=== PATIENT | female | born 2000 | race African-American/Black ===

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

== ENCOUNTER 2019-01-25 16:07 | Emergency (ER) | payer MEDICAID ==
[~2019-01-25] VITALS: Ht 182.9 cm; Wt 84.4 kg
--- NOTE | 2019-01-25 16:29 | NUR ---
"PROLONGED MENSTRUAL PERIODS, WEAKNESS S/P DEPO SHOT LAST 12/09/18" PT AAOX4, -SOB, NAD NOTED, VSS, PENDING MD MALONE
[2019-01-25 17:27] LABS: BASOPHILS % (AUTO) 0.7 % (0.0-2.0); EOSINOPHILS % (AUTO) 1.2 % (0.0-6.0); HEMATOCRIT 38 % (33-45); HEMOGLOBIN 12.3 g/dL (11.5-14.8); LYMPHOCYTES # (AUTO) 2.4 /CMM (0.8-4.8); MEAN CORPUSCULAR HGB CONC 33 g/dl (31.0-36.0); MEAN CORPUSCULAR VOLUME 80 fL (82-100); MONOCYTES # (AUTO) 0.4 /CMM (0.1-1.30); MONOCYTES % (AUTO) 9.1 % (2.0-12.0); NEUTROPHILS # (AUTO) 1.7 /CMM (1.8-8.9); PLATELET COUNT (AUTO) 228 /CMM (150-450); RED BLOOD CELL COUNT(AUTO) 4.67 MIL/uL (4.0-5.2); WHITE BLOOD COUNT (AUTO) 4.6 K/uL (4.3-11.0)
[2019-01-25 17:37] LABS: CALCIUM, SERUM 9.2 mg/dL (8.5-10.1); CREATININE 0.8 mg/dL (0.6-1.3); POTASSIUM 3.8 mmol/L (3.5-5.1)
[2019-01-25 18:11] LABS: APPEARANCE,URINE Clear (CLEAR); BILIRUBIN,URINE Negative (NEGATIVE); BLOOD, URINE Negative Ery/uL (NEGATIVE); COLOR,URINE Yellow (YELLOW); KETONES,URINE Trace (NEGATIVE); LEUKOCYTE ESTERASE ,URINE Negative (NEGATIVE); NITRITE, URINE Negative (NEGATIVE); PH,URINE 7.5 (5.0-8.0); PROTEIN,URINE Negative (NEGATIVE); UGLUCOSE Negative (NEGATIVE)
[2019-01-25 18:25] LABS: BACTERIA,URINE Few /HPF (None Seen); RBC,URINE 0-2 /HPF (0-2); SQUAMOUS EPITHELIAL CELL,UR Moderate /HPF (None Seen); WBC,URINE 0-2 /HPF (0-3)
--- NOTE | 2019-01-25 19:29 | NUR ---
Patient discharged to home in stable condition. Written and verbal after care instructions given. Patient verbalizes understanding of instruction.
[2019-01-25 19:33] VITALS: BP 123/60
== END 2019-01-25 19:33 | disposition home or self-care (01) ==
LOC: ER 16:10
DX: N93.8 Other specified abnormal uterine and vaginal bleeding (principal); R42 Dizziness and giddiness
CPT/HCPCS: 36415; 76856-TC; 80048-TC; 81000-TC; 84702-TC; 85025-TC

== ENCOUNTER 2019-05-14 19:35 | Emergency (ER) | payer SELFPAY ==
[~2019-05-14] VITALS: Ht 182.9 cm; Wt 86.2 kg
--- NOTE | 2019-05-14 20:20 | NUR ---
CALLED PT TO BE TRIAGED, NOT IN WAITING ROOM
--- NOTE | 2019-05-14 21:25 | NUR ---
RESIDENCE LEASING AGENT IS AT THE BEDSIDE.
--- NOTE | 2019-05-14 21:25 | NUR ---
PT PRESENTED TO THE ER WITH A C/O VB. PT STATED THAT SHE JUST GOT OFF HER DEPO SHOT AND HAS GONE THROUGH 7 [employer] TODAY. PT IS AA&O X4. PT AMBULATED TO THE BATHROOM AND A URINE SAMPLE WAS OBTAINED. PT RETURNED TO ER #2.
[2019-05-14] MEDS ORDERED: ONDANSETRON HCL/PF 4 MG/2 ML VIAL IVP ONE (21:30)
[2019-05-14] MEDS ORDERED: IV NS 0.9% 1,000 ML BAG IV ONE (21:30)
[2019-05-14] MEDS ORDERED: KETOROLAC TROMETHAMINE INJ 30 MG/ML VIAL IV ONE (21:30)
[2019-05-14 21:32] LABS: BASOPHILS % (AUTO) 0.4 % (0.0-2.0); EOSINOPHILS % (AUTO) 1.1 % (0.0-6.0); HEMATOCRIT 38 % (33-45); HEMOGLOBIN 12.3 g/dL (11.5-14.8); LYMPHOCYTES % (AUTO) 54.7 % (20.0-44.0); MEAN CORPUSCULAR HGB CONC 32 g/dl (31.0-36.0); MEAN CORPUSCULAR VOLUME 81 fL (82-100); MONOCYTES # (AUTO) 0.4 /CMM (0.1-1.30); MONOCYTES % (AUTO) 7.6 % (2.0-12.0); NEUTROPHILS % (AUTO) 36.2 % (43.0-81.0); PLATELET COUNT (AUTO) 236 /CMM (150-450); RED BLOOD CELL COUNT(AUTO) 4.72 MIL/uL (4.0-5.2); WHITE BLOOD COUNT (AUTO) 5.4 K/uL (4.3-11.0)
[2019-05-14] MEDS ORDERED: KETOROLAC TROMETHAMINE INJ 30 MG/ML VIAL ONE (21:33)
[2019-05-14] MEDS ORDERED: ONDANSETRON HCL/PF 4 MG/2 ML VIAL ONE (21:33)
[2019-05-14 21:50] LABS: APPEARANCE,URINE Clear (CLEAR); BILIRUBIN,URINE SMALL (NEGATIVE); BLOOD, URINE Negative Ery/uL (NEGATIVE); COLOR,URINE Yellow (YELLOW); KETONES,URINE Negative (NEGATIVE); LEUKOCYTE ESTERASE ,URINE Negative (NEGATIVE); NITRITE, URINE Negative (NEGATIVE); PH,URINE 6.5 (5.0-8.0); PROTEIN,URINE Negative (NEGATIVE); UGLUCOSE Negative (NEGATIVE)
[2019-05-14 21:53] LABS: ALBUMIN 3.9 g/dL (3.4-5.0); BILIRUBIN,TOTAL 0.2 mg/dL (0.2-1.0); CALCIUM, SERUM 9.4 mg/dL (8.5-10.1); CREATININE 0.8 mg/dL (0.6-1.3); POTASSIUM 3.7 mmol/L (3.5-5.1); TOTAL PROTEIN, SERUM 8.2 g/dL (6.4-8.2)
[2019-05-14 21:56] LABS: BACTERIA,URINE Rare /HPF (None Seen); RBC,URINE NONE SEEN /HPF (0-2); SQUAMOUS EPITHELIAL CELL,UR Few /HPF (None Seen); WBC,URINE NONE SEEN /HPF (0-3)
--- NOTE | 2019-05-14 22:03 | NUR ---
PT IS IN THE BATHROOM. US TECH IS AT THE BEDSIDE.
--- NOTE | 2019-05-14 22:09 | NUR ---
US ERIC DHILLON AT THE BEDSIDE. Female television schedule coordinator accompanied female patient for US ERIC DHILLON.
--- NOTE | 2019-05-14 23:05 | NUR ---
Jonathan CHAVEZ PA-C IS AT THE BEDSIDE SPEAKING TO THE PT.
--- NOTE | 2019-05-14 23:33 | NUR ---
IV removed. Catheter intact and site benign. Pressure and 4x4 applied to site. No bleeding noted. Patient discharged to home in stable condition. Written and verbal after care instructions given. Patient verbalizes understanding of instruction AND RX. PT REC'D A COPY OF THE IMAGING DISK, IMAGING FINDINGS, AND LABS. PT AMBULATED OUT WITH A STEADY GAIT. PT'S BOYFRIEND IS PICKING THE PT UP. VSS. NAD NOTED.
[2019-05-14 23:45] VITALS: BP 122/76
== END 2019-05-14 23:46 | disposition home or self-care (01) ==
LOC: ER 19:43
DX: N93.8 Other specified abnormal uterine and vaginal bleeding (principal)
CPT/HCPCS: 36415; 76856; 80048; 80076; 81001; 84703; 85025; 85730; 96374; 96375; 99284; J1885; J2405; J7030; 81000-TC

== ENCOUNTER 2019-05-24 00:08 | Emergency (ER) | payer MEDICAID ==
[2019-05-24] MEDS ORDERED: KETOROLAC TROMETHAMINE INJ 60 MG/2 ML VIAL IM ONE ×2 (00:35→01:00)
[2019-05-24] MEDS ORDERED: IBUPROFEN 400 MG TABLET ONE (00:41)
[2019-05-24 00:46] LABS: HEMOGLOBIN 11.4 g/dL (11.5-14.8)
[2019-05-24 00:49] LABS: BASOPHILS % (AUTO) 0.7 % (0.0-2.0); EOSINOPHILS % (AUTO) 1.2 % (0.0-6.0); HEMATOCRIT 36 % (33-45); LYMPHOCYTES # (AUTO) 3.2 /CMM (0.8-4.8); LYMPHOCYTES % (AUTO) 48.5 % (20.0-44.0); MEAN CORPUSCULAR HGB CONC 32 g/dl (31.0-36.0); MEAN CORPUSCULAR VOLUME 81 fL (82-100); MONOCYTES # (AUTO) 0.5 /CMM (0.1-1.30); MONOCYTES % (AUTO) 6.9 % (2.0-12.0); NEUTROPHILS # (AUTO) 2.9 /CMM (1.8-8.9); NEUTROPHILS % (AUTO) 42.7 % (43.0-81.0); PLATELET COUNT (AUTO) 233 /CMM (150-450); RED BLOOD CELL COUNT(AUTO) 4.41 MIL/uL (4.0-5.2); WHITE BLOOD COUNT (AUTO) 6.7 K/uL (4.3-11.0)
--- NOTE | 2019-05-24 00:52 | NUR ---
EPI FROM HOME TO ER BED 16. AAOX4. NO RESP DISTRESS NOTED. AMBULATORY. C/O SEVERE VAGINAL BLEEDING AND ABDOMINAL CRAMPING. PT REPORTS THAT SHE HAS BEEN HAVING THE BLEEDING SINCE 04/07/19. SHE ALSO REPORTS HAVING BLOOD CLOTS DISCHARGE. PT HAVENT SEEN AN OBGYN SINCE IT STARTED. DENIES NAUSEA OR VOMMITING. MD WAS AT BEDSIDE FOR EVAL. ORDERS RECEIVED, NOTED AND CARRIED OUT. BLOOD DRAWN AND GIVEN TO BENEFITS ADMINISTRATOR AT BEDSIDE. TORADOL ORDER RECEIVED BUT REFUSED BY PT. MADE AWARE AND CHANGED MEDS TO IBUPROHEN 800MG PO X 1.
[2019-05-24] MEDS ORDERED: IBUPROFEN 400 MG TABLET PO ONE (01:00)
[2019-05-24 01:09] VITALS: BP 113/66
--- NOTE | 2019-05-24 01:09 | NUR ---
Patient discharged to home in stable condition. Written and verbal after care instructions given. Patient verbalizes understanding of instruction. Pt ambulatory with a steady gait
== END 2019-05-24 01:09 | disposition home or self-care (01) ==
LOC: ER 00:10
DX: N93.8 Other specified abnormal uterine and vaginal bleeding (principal)
CPT/HCPCS: 36415; 85025-TC; J1885

== ENCOUNTER 2019-06-01 09:32 | Emergency (ER) | payer MEDICAID ==
[~2019-06-01] VITALS: Ht 182.9 cm; Wt 86.2 kg
--- NOTE | 2019-06-01 09:40 | NUR ---
BIB SELF C/O VAGINAL BLEED AND ABDOMINAL CRAMPING STARTED THIS MORNING. PATIENT A/OX4, NO DISTRESS NOTED. KEPT COMFORTABLE.
[2019-06-01] MEDS ORDERED: KETOROLAC TROMETHAMINE INJ 30 MG/ML VIAL IM ONE (10:00)
[2019-06-01 10:13] LABS: APPEARANCE,URINE Clear (CLEAR); BILIRUBIN,URINE Negative (NEGATIVE); BLOOD, URINE Moderate Ery/uL (NEGATIVE); COLOR,URINE Yellow (YELLOW); KETONES,URINE Negative (NEGATIVE); LEUKOCYTE ESTERASE ,URINE Trace (NEGATIVE); NITRITE, URINE Negative (NEGATIVE); PROTEIN,URINE Negative (NEGATIVE); UGLUCOSE Negative (NEGATIVE)
[2019-06-01 10:22] LABS: BASOPHILS % (AUTO) 0.3 % (0.0-2.0); EOSINOPHILS % (AUTO) 1.2 % (0.0-6.0); HEMATOCRIT 32 % (33-45); HEMOGLOBIN 10.5 g/dL (11.5-14.8); LYMPHOCYTES # (AUTO) 1.5 /CMM (0.8-4.8); LYMPHOCYTES % (AUTO) 35.7 % (20.0-44.0); MEAN CORPUSCULAR HGB CONC 32 g/dl (31.0-36.0); MEAN CORPUSCULAR VOLUME 81 fL (82-100); MONOCYTES # (AUTO) 0.3 /CMM (0.1-1.30); MONOCYTES % (AUTO) 6.6 % (2.0-12.0); NEUTROPHILS # (AUTO) 2.3 /CMM (1.8-8.9); NEUTROPHILS % (AUTO) 56.2 % (43.0-81.0); PLATELET COUNT (AUTO) 211 /CMM (150-450); RED BLOOD CELL COUNT(AUTO) 3.99 MIL/uL (4.0-5.2); WHITE BLOOD COUNT (AUTO) 4.1 K/uL (4.3-11.0)
[2019-06-01 10:31] LABS: CALCIUM, SERUM 9.2 mg/dL (8.5-10.1); CREATININE 0.9 mg/dL (0.6-1.3); POTASSIUM 3.8 mmol/L (3.5-5.1)
[2019-06-01 10:37] LABS: ALBUMIN 3.6 g/dL (3.4-5.0); BILIRUBIN,DIRECT 0.1 mg/dL (0.0-0.2); BILIRUBIN,TOTAL 0.3 mg/dL (0.2-1.0); TOTAL PROTEIN, SERUM 7.7 g/dL (6.4-8.2)
[2019-06-01] MEDS ORDERED: KETOROLAC TROMETHAMINE INJ 30 MG/ML VIAL ONE (10:40)
[2019-06-01 10:47] LABS: BACTERIA,URINE 1+ /HPF (None Seen); SQUAMOUS EPITHELIAL CELL,UR Moderate /HPF (None Seen)
[2019-06-01 11:12] VITALS: BP 128/89
--- NOTE | 2019-06-01 11:18 | NUR ---
Patient discharged to home in stable condition. Written and verbal after care instructions given. Patient verbalizes understanding of instruction.
== END 2019-06-01 11:18 | disposition home or self-care (01) ==
LOC: ER 09:34
DX: N93.8 Other specified abnormal uterine and vaginal bleeding (principal)
CPT/HCPCS: 36415; 80048; 80076; 81001; 83690; 84702; 84703; 85025; 96372; 99283; J1885; 81000-TC

== ENCOUNTER 2019-06-26 19:55 | Emergency (ER) | payer MEDICAID ==
[~2019-06-26] VITALS: Ht 182.9 cm; Wt 87.5 kg
--- NOTE | 2019-06-26 21:20 | NUR ---
PT AAOX4. AMBULATORY. C/O WORSENING VAGINAL BLEEDING, ABDOMINAL PAIN WITH CRAMPING. MD AT BEDSIDE FOR EVAL. VSS. N0 ACUTE DISTRESS NOTED.
[2019-06-26] MEDS ORDERED: IBUPROFEN 600 MG TABLET PO ONE ×2 (21:26→21:30)
[2019-06-26] MEDS ORDERED: IV NS 0.9% 1,000 ML BAG IV ONE (21:30)
[2019-06-26 21:41] LABS: BASOPHILS % (AUTO) 0.6 % (0.0-2.0); EOSINOPHILS % (AUTO) 3.9 % (0.0-6.0); HEMATOCRIT 34 % (33-45); LYMPHOCYTES # (AUTO) 2.3 /CMM (0.8-4.8); LYMPHOCYTES % (AUTO) 58.9 % (20.0-44.0); MEAN CORPUSCULAR HGB CONC 32 g/dl (31.0-36.0); MEAN CORPUSCULAR VOLUME 82 fL (82-100); MONOCYTES # (AUTO) 0.4 /CMM (0.1-1.30); MONOCYTES % (AUTO) 10.8 % (2.0-12.0); NEUTROPHILS % (AUTO) 25.8 % (43.0-81.0); PLATELET COUNT (AUTO) 224 /CMM (150-450); RED BLOOD CELL COUNT(AUTO) 4.18 MIL/uL (4.0-5.2); WHITE BLOOD COUNT (AUTO) 3.8 K/uL (4.3-11.0)
--- NOTE | 2019-06-26 21:41 | NUR ---
PHLEBOTOMST AT [facility] FOR LAB COLLECTION
--- NOTE | 2019-06-26 21:41 | NUR ---
URINE SENT TO LAB
[2019-06-26 21:46] LABS: APPEARANCE,URINE Clear (CLEAR); BILIRUBIN,URINE SMALL (NEGATIVE); BLOOD, URINE Moderate Ery/uL (NEGATIVE); COLOR,URINE Yellow (YELLOW); KETONES,URINE Trace (NEGATIVE); LEUKOCYTE ESTERASE ,URINE Negative (NEGATIVE); NITRITE, URINE Negative (NEGATIVE); PROTEIN,URINE Negative (NEGATIVE); UGLUCOSE Negative (NEGATIVE)
[2019-06-26 21:48] LABS: CALCIUM, SERUM 9.3 mg/dL (8.5-10.1); CREATININE 0.8 mg/dL (0.6-1.3); POTASSIUM 3.7 mmol/L (3.5-5.1)
[2019-06-26 21:54] LABS: ALBUMIN 3.6 g/dL (3.4-5.0); BILIRUBIN,TOTAL 0.1 mg/dL (0.2-1.0); TOTAL PROTEIN, SERUM 8.1 g/dL (6.4-8.2)
[2019-06-26 21:58] LABS: BACTERIA,URINE Few /HPF (None Seen); SQUAMOUS EPITHELIAL CELL,UR Few /HPF (None Seen); WBC,URINE 0-2 /HPF (0-3)
--- NOTE | 2019-06-26 22:30 | NUR ---
IV removed. Catheter intact and site benign. Pressure and 4x4 applied to site. No bleeding noted.
[2019-06-26 22:33] VITALS: BP 114/72
--- NOTE | 2019-06-26 22:33 | NUR ---
Patient discharged to home in stable condition. Written and verbal after care instructions given. Patient verbalizes understanding of instruction and RX. vss. pt ambulatory with a steady gait.
== END 2019-06-26 22:38 | disposition home or self-care (01) ==
LOC: ER 19:57
DX: N93.8 Other specified abnormal uterine and vaginal bleeding (principal); J06.9 Acute upper respiratory infection, unspecified
CPT/HCPCS: 36415; 80048; 80076; 81001; 84703; 85025; 85730; 99283; J7030; 81000-TC

== ENCOUNTER 2019-07-28 12:57 | Emergency (ER) | payer MEDICAID ==
[~2019-07-28] VITALS: Ht 180.3 cm; Wt 87.1 kg
[2019-07-28 13:08] VITALS: BP 124/64
== END 2019-07-28 13:58 | disposition home or self-care (01) ==
LOC: ER 12:59
DX: Z00.00 Encounter for general adult medical examination without abnormal findings (principal)

== ENCOUNTER 2020-04-28 19:09 | Emergency (ER) | payer MEDICAID ==
[~2020-04-28] VITALS: Ht 182.9 cm; Wt 87.1 kg
[2020-04-28] MEDS ORDERED: ACETAMINOPHEN ES 500 MG TABLET ONE (19:33)
[2020-04-28] MEDS: ACETAMINOPHEN 325 MG TABLET PO ONE (19:35)
[2020-04-28 19:53] VITALS: BP 122/74
== END 2020-04-28 19:53 | disposition home or self-care (01) ==
LOC: ER 19:12
DX: R22.0 Localized swelling, mass and lump, head (principal); R51.9 Headache, unspecified

== ENCOUNTER 2020-04-30 09:36 | Emergency (ER) | payer MEDICAID ==
[~2020-04-30] VITALS: Ht 182.9 cm; Wt 98.0 kg
--- NOTE | 2020-04-30 09:43 | NUR ---
came in for worsening facial swelling. seen 2 days ago. advised to come back for worsening symptoms, to ER bed 9, hooked to monitor, changed to hosp gown, warm blanket provided, Dr Lewis at bedside
[2020-04-30] MEDS ORDERED: MORPHINE SULFATE INJ 4 MG/ML DISP.SYRIN ONE (10:21)
[2020-04-30] MEDS ORDERED: ONDANSETRON HCL/PF 4 MG/2 ML VIAL ONE ×2 (10:21→13:00)
[2020-04-30 10:30] LABS: BASOPHILS % (AUTO) 0.2 % (0.0-2.0); EOSINOPHILS % (AUTO) 0.6 % (0.0-6.0); HEMATOCRIT 34 % (33-45); HEMOGLOBIN 10.5 g/dL (11.5-14.8); LYMPHOCYTES # (AUTO) 1.8 /CMM (0.8-4.8); LYMPHOCYTES % (AUTO) 33.3 % (20.0-44.0); MEAN CORPUSCULAR HGB CONC 31 g/dl (31.0-36.0); MEAN CORPUSCULAR VOLUME 76 fL (82-100); MONOCYTES # (AUTO) 0.6 /CMM (0.1-1.30); MONOCYTES % (AUTO) 11.1 % (2.0-12.0); NEUTROPHILS % (AUTO) 54.8 % (43.0-81.0); PLATELET COUNT (AUTO) 212 /CMM (150-450); RED BLOOD CELL COUNT(AUTO) 4.45 MIL/uL (4.0-5.2); WHITE BLOOD COUNT (AUTO) 5.5 K/uL (4.3-11.0)
[2020-04-30] MEDS ORDERED: KETOROLAC TROMETHAMINE INJ 30 MG/ML VIAL IV ONE (10:30)
[2020-04-30] MEDS ORDERED: IV NS 0.9% 1,000 ML IV ONE (10:30)
[2020-04-30] MEDS ORDERED: ONDANSETRON HCL/PF 4 MG/2 ML VIAL IV ONE ×2 (10:30→13:00)
[2020-04-30] MEDS ORDERED: MORPHINE SULFATE INJ 4 MG/ML DISP.SYRIN IV ONE (10:30)
--- NOTE | 2020-04-30 10:36 | NUR ---
URINE SAMPLE SENT TO LAB
[2020-04-30 10:39] LABS: CALCIUM, SERUM 8.7 mg/dL (8.5-10.1); CREATININE 0.8 mg/dL (0.6-1.3); POTASSIUM 3.7 mmol/L (3.5-5.1)
[2020-04-30] MEDS ORDERED: KETOROLAC TROMETHAMINE 15 MG/ML VIAL ONE (11:23)
[2020-04-30] MEDS ORDERED: CT SWABBABLE VALVE TRANS SET 1 EA INFUS.SET MC ONE (11:26)
[2020-04-30] MEDS ORDERED: IV NS 0.9% 250 ML IV ONE (11:26)
[2020-04-30] MEDS ORDERED: IOHEXOL-300 100 ML VIAL IV ONE (11:26)
--- NOTE | 2020-04-30 11:26 | NUR ---
picked up by elvira baez via [email or web address] for CT scan
--- NOTE | 2020-04-30 13:45 | NUR ---
IV removed. Catheter intact and site benign. Pressure and 4x4 applied to site. No bleeding noted.Patient discharged to home in stable condition. Written and verbal after care instructions given. Patient verbalizes understanding of instruction.
[2020-04-30 13:46] VITALS: BP 102/61
== END 2020-04-30 13:46 | disposition home or self-care (01) ==
LOC: ER 09:39
DX: K04.7 Periapical abscess without sinus (principal); R51.9 Headache, unspecified
CPT/HCPCS: 36415; 70487; 80048; 84703; 85025; 96361; 96374; 96375; 96376; 99285; J1885; J2270; J2405 ×2; J7030; J7050; Q9967

== ENCOUNTER 2020-10-25 16:34 | Emergency (ER) | payer MEDICAID ==
[~2020-10-25] VITALS: Ht 182.9 cm; Wt 89.8 kg
[2020-10-25 16:44] VITALS: BP 120/91
[2020-10-25] MEDS ORDERED: HYDR-3972 PO (16:56)
[2020-10-25] MEDS ORDERED: AMOX-430 PO (16:56)
[2020-10-25] MEDS ORDERED: IBUP-1957 PO (16:56)
[2020-10-25] MEDS ORDERED: HYDROCODONE/APAP 5/325MG TABLET ONE (16:59)
[2020-10-25] MEDS: HYDROCODONE/APAP 5/325MG TABLET PO ONE (17:02)
--- NOTE | 2020-10-25 17:03 | NUR ---
Patient discharged to home in stable condition. Written and verbal after care instructions given. Patient verbalizes understanding of instruction.
== END 2020-10-25 17:03 | disposition home or self-care (01) ==
LOC: ER 16:35
DX: K08.89 Other specified disorders of teeth and supporting structures (principal)

== ENCOUNTER 2021-02-23 20:51 | Emergency (ER) | payer MEDICAID ==
[~2021-02-23] VITALS: Ht 182.9 cm; Wt 86.2 kg
[~2021-02-23 20:51] MED LIST: AMOX-430 PO; HYDR-3972 PO; IBUP-1957 PO
--- NOTE | 2021-02-23 22:24 | NUR ---
PATIENT BIBRA C/O PAIN WHILE URINATING AND FACE RASHES FLARE UP. PATIENT IS AOX 4 VERBALIZING CONCERN. INDEPENDENT. AMBULATORY. NO SOB OR RESP. DISTRESS. AFEBRILE. VSS. KEPT COMFORTABLE IN BED 3.
[2021-02-23 23:10] LABS: BILIRUBIN,URINE Negative (NEGATIVE); COLOR,URINE YELLOW (YELLOW); LEUKOCYTE ESTERASE ,URINE Moderate (NEGATIVE); NITRITE, URINE Negative (NEGATIVE); PH,URINE 5.5 (5.0-8.0); PROTEIN,URINE Negative (NEGATIVE); UGLUCOSE Negative (NEGATIVE); UROBILINOGEN,URINE 0.2 EU/dL (0.2)
[2021-02-23 23:14] LABS: BACTERIA,URINE 2+ /HPF (None Seen); SQUAMOUS EPITHELIAL CELL,UR Few /HPF (None Seen)
[2021-02-23] MEDS ORDERED: CEPHALEXIN MONOHYDRATE 500 MG CAPSULE PO ONE ×2 (23:30→23:41)
[2021-02-23] MEDS ORDERED: CEPH500C2 PO (23:58)
[2021-02-24] MEDS ORDERED: CLOT15CR27 TP (00:02)
--- NOTE | 2021-02-24 00:17 | NUR ---
First dose of ATB keflex admnisterd orally and tolerated well. Patient discharged to home in stable condition. VSS. afebrile. Written and verbal after care instructions given. Patient verbalizes understanding of instruction.
[2021-02-24 00:20] VITALS: BP 132/70
== END 2021-02-24 00:22 | disposition home or self-care (01) ==
LOC: ER 20:55
DX: N39.0 Urinary tract infection, site not specified (principal); R21 Rash and other nonspecific skin eruption
CPT/HCPCS: 81001; 84703-TC; 87086-TC

== ENCOUNTER 2021-03-02 14:31 | Emergency (ER) | payer MEDICAID ==
[~2021-03-02] VITALS: Ht 182.9 cm; Wt 86.2 kg
[~2021-03-02 14:31] MED LIST changes: +CEPH500C2 PO; +CLOT15CR27 TP
--- NOTE | 2021-03-02 14:31 | NUR ---
PT BIB SELF C/O PAINFUL URINATION. PT IS AAOX4, NOT IN RESPIRATORY DISTRESS, V/S STABLE, KEPT RESTED AND COMFORTABLE. WILL CONTINUE TO MONITOR.
--- NOTE | 2021-03-02 15:00 | NUR ---
PT SEEN AND EXAMINED BY .
[2021-03-02 16:12] LABS: BASOPHILS % (AUTO) 0.4 % (0.0-2.0); EOSINOPHILS % (AUTO) 1.4 % (0.0-6.0); HEMATOCRIT 37 % (33-45); HEMOGLOBIN 12.2 g/dL (11.5-14.8); LYMPHOCYTES # (AUTO) 1.5 K/uL (0.8-4.8); LYMPHOCYTES % (AUTO) 33.7 % (20.0-44.0); MEAN CORPUSCULAR HGB CONC 33 g/dl (31.0-36.0); MEAN CORPUSCULAR VOLUME 83 fL (82-100); MONOCYTES # (AUTO) 0.4 K/uL (0.1-1.30); MONOCYTES % (AUTO) 9.2 % (2.0-12.0); NEUTROPHILS # (AUTO) 2.4 K/uL (1.8-8.9); NEUTROPHILS % (AUTO) 55.3 % (43.0-81.0); PLATELET COUNT (AUTO) 206 K/uL (150-450); WHITE BLOOD COUNT (AUTO) 4.3 K/uL (4.3-11.0)
[2021-03-02 16:18] LABS: CALCIUM, SERUM 8.4 mg/dL (8.5-10.1); CREATININE 0.7 mg/dL (0.6-1.3); POTASSIUM 3.9 mmol/L (3.5-5.1)
[2021-03-02 16:23] LABS: ALBUMIN 3.7 g/dL (3.4-5.0); BILIRUBIN,DIRECT 0.1 mg/dL (0.0-0.2); BILIRUBIN,TOTAL 0.4 mg/dL (0.2-1.0)
[2021-03-02] MEDS ORDERED: DOXY100C2 PO (16:50)
[2021-03-02] MEDS ORDERED: HYDR-3976 GT (16:50)
[2021-03-02] MEDS ORDERED: CEFTRIAXONE 500 MG VIAL ONE (16:58)
[2021-03-02] MEDS ORDERED: HYDROCODONE/APAP 5/325MG TABLET ONE (16:59)
[2021-03-02] MEDS ORDERED: LIDOCAINE /MPF 1% VIAL 5 ML VIAL ONE (16:59)
[2021-03-02] MEDS ORDERED: HYDROCODONE/APAP 5/325MG TABLET PO ONE (17:00)
[2021-03-02] MEDS ORDERED: CEFTRIAXONE 500 MG VIAL IM ONE (17:00)
--- NOTE | 2021-03-02 17:02 | NUR ---
Patient discharged to home in stable condition. Written and verbal after care instructions given. Patient verbalizes understanding of instruction.
[2021-03-02 17:03] VITALS: BP 117/58
== END 2021-03-02 17:09 | disposition home or self-care (01) ==
LOC: ER 14:33
DX: N83.202 Unspecified ovarian cyst, left side (principal); Z79.899 Other long term (current) drug therapy
CPT/HCPCS: 36415; 76856; 80048; 80076; 83690; 85025; 87491; 87591; 96372; 99284; J0696; J3490

== ENCOUNTER 2021-06-12 12:51 | Emergency (ER) | payer MEDICAID ==
[~2021-06-12] VITALS: Ht 182.9 cm; Wt 86.2 kg
[~2021-06-12 12:51] MED LIST changes: +DOXY100C2 PO; +HYDR-3976 GT
--- NOTE | 2021-06-12 14:34 | NUR ---
BIBS FOR LLQ PAIN; STARTED THIS MORNING (HX OF OVARIAN CYST) , TO CHAIR1, HOOKED TO MONITOR. AWAITING MD MALONE
[2021-06-12 14:54] LABS: BILIRUBIN,URINE NEGATIVE (NEGATIVE); COLOR,URINE YELLOW (YELLOW); LEUKOCYTE ESTERASE ,URINE NEGATIVE (NEGATIVE); NITRITE, URINE NEGATIVE (NEGATIVE); PH,URINE 7.5 (5.0-8.0); PROTEIN,URINE NEGATIVE (NEGATIVE); UGLUCOSE NEGATIVE (NEGATIVE)
[2021-06-12 15:16] LABS: BACTERIA,URINE RARE /HPF (None Seen); MUCUS,URINE Few /LPF (None Seen); RBC,URINE 0-2 /HPF (0-2); WBC,URINE 0-2 /HPF (0-3)
--- NOTE | 2021-06-12 20:27 | NUR ---
Patient discharged to home in stable condition. Written and verbal after care instructions given. Patient verbalizes understanding of instruction.
[2021-06-12 20:28] VITALS: BP 128/77
== END 2021-06-12 20:42 | disposition home or self-care (01) ==
LOC: ER 12:53
DX: R10.32 Left lower quadrant pain (principal); Z79.1 Long term (current) use of non-steroidal anti-inflammatories (NSAID); Z79.2 Long term (current) use of antibiotics; Z79.899 Other long term (current) drug therapy
CPT/HCPCS: 76856-TC; 81001; 84703-TC

== ENCOUNTER 2021-09-30 14:04 | Emergency (ER) | payer MEDICAID ==
[~2021-09-30] VITALS: Ht 182.9 cm; Wt 86.2 kg
[2021-09-30 14:12] VITALS: BP 132/69
--- NOTE | 2021-09-30 14:12 | NUR ---
"STD check" noticed discharges yesterday 10/13 ps
[2021-09-30 15:25] LABS: BILIRUBIN,URINE NEGATIVE (NEGATIVE); COLOR,URINE YELLOW (YELLOW); LEUKOCYTE ESTERASE ,URINE NEGATIVE (NEGATIVE); NITRITE, URINE NEGATIVE (NEGATIVE); PH,URINE 8.5 (5.0-8.0); PROTEIN,URINE NEGATIVE (NEGATIVE); UGLUCOSE NEGATIVE (NEGATIVE)
[2021-09-30] MEDS ORDERED: AZIT500T PO (15:45)
[2021-09-30 15:59] LABS: BACTERIA,URINE 1+ /HPF (None Seen); RBC,URINE 0-2 /HPF (0-2); WBC,URINE 0-2 /HPF (0-3)
--- NOTE | 2021-09-30 17:13 | NUR ---
Patient discharged to home in stable condition. Written and verbal after care instructions given. Patient verbalizes understanding of instruction.
== END 2021-09-30 17:13 | disposition home or self-care (01) ==
LOC: ER 14:04
DX: R30.0 Dysuria (principal); Z20.2 Contact with and (suspected) exposure to infections with a predominantly sexual mode of transmission; Z79.899 Other long term (current) drug therapy
CPT/HCPCS: 81001; 87491; 87591